=== PATIENT | female | born 1985 | race Caucasian/White ===

== ENCOUNTER 2023-11-14 17:29 | Emergency (ER) | payer MEDICAID, SELFPAY ==
[2023-11-14 17:41] VITALS: BP 120/87; PULSE 89; RESP 16; TEMP 37.7; O2SAT 99
--- NOTE | 2023-11-14 17:50 | ED.DENTAL ---
HPI - Dental/Oral General Chief complaint: Dental/Oral Stated complaint: lip/cheek pain, tooth pain right side mouth Time Seen by Provider: 11/14/23 18:04 Source: patient Mode of arrival: ambulatory History of Present Illness HPI Narrative: 38-year-old female presented for complaint of right upper dental pain with facial swelling. Onset yesterday morning. She reports a broken tooth to the site. She states she took leftover amoxicillin and the swelling has subsided. States she had been following with the [facility], however she states she missed several appointments and has to start over. Denies nausea, vomiting diarrhea, fevers or chills. MD Complaint: tooth pain Related Data Allergies Allergy/AdvReac Type Severity Reaction Status Date / Time No Known Allergies Allergy Verified 11/14/23 18:05 Review of Systems Review of Systems: CONSTITUTIONAL: Denies body aches, fever, chills ENT: Denies rhinorrhea, congestion, sore throat, or otalgia. Reports dental pain CARDIOVASCULAR: Denies chest pain, palpitations RESPIRATORY: Denies cough or dyspnea. SKIN: Denies rash, itching, or wounds. MUSCULOSKELETAL: Denies myalgia. NEUROLOGIC: Denies headache, numbness, tingling, or weakness. PMFSH Comments At time of signature, I have reviewed and agree with nursing past medical, surgical, social and family history unless otherwise noted. Please see nursing chart for further information. There is no relevant family history pertinent to the presenting complaint Exam Narrative: GENERAL: Appears in pain; no acute distress. HEAD: Normocephalic, atraumatic. EYES: EOMI. No redness or drainage. Conjunctivae normal. ENT: Dental pain location of #7, broken tooth to gumline, no drainage, mild redness, minimal swelling to gum. Poor dentition throughout. Mucous membranes pink and moist. TMs normal bilaterally. Throat normal. Uvula midline, no soft palate swelling, no dysphagia, odynophagia, dysphonia, or dyspnea. NECK: Normal AROM. No lymphadenopathy. no induration below mandible, no neck pain CHEST: No respiratory distress. Clear to auscultation. HEART: Regular rate and rhythm. No murmur appreciated. SKIN: Warm, dry, no rash. Normal skin turgor. NEURO: No focal deficits. Alert and oriented x3. Gait steady. Course Course Emergency Course: Patient is aware of diagnosis, understands and agrees to treatment plan. Anticipatory guidance given. Patient agrees to follow-up as directed and is aware of reasons to seek care at the emergency department. Portions of this record may have been created with voice recognition software Level of Care: Express Care Visit Vital Signs Vital signs: Vital Signs Temperature 99.8 F H 11/14/23 17:41 Pulse Rate 89 11/14/23 17:41 Respiratory Rate 16 11/14/23 17:41 Blood Pressure 120/87 11/14/23 17:41 Pulse Oximetry 99 11/14/23 17:41 Oxygen Delivery Room Air 11/14/23 17:41 Temperature 99.8 F H 11/14/23 17:41 Pulse Rate 89 11/14/23 17:41 Respiratory Rate 16 11/14/23 17:41 Blood Pressure 120/87 11/14/23 17:41 Pulse Oximetry 99 11/14/23 17:41 Oxygen Delivery Room Air 11/14/23 17:41 MDM - Dental/Oral MDM Narrative Medical decision making narrative: Patients pain and complaint coupled with physical findings are consistent with dental abscess. There are no focal signs of space occupying lesions that are compromising to the airway; Patient is non-toxic appearing. The floor of the mouth is soft with no signs of Franklyn's Angina; . Patient is without trismus or drooling and able to swallow secretions. Patient is felt appropriate for discharge home with dental follow up. Differential Diagnosis Differential diagnosis: Likely gingival abscess, dental caries, toothache, dental abscess, fracture of tooth and aphthous ulcer Discharge Plan Discharge Clinical Impression: Dental abscess Patient Disposition: Home, Self-Care Condition: Stable
== END 2023-11-14 18:13 | disposition home or self-care (01) ==
PROVIDERS: Emergency Provider Nurse Practitioner Family; PCP Student in an Organized Health Care Education/Training Program
DX: K04.7 Periapical abscess without sinus (principal)
CPT/HCPCS: 99213; G0463